=== PATIENT | male | born 1995 | race Caucasian/White ===

== ENCOUNTER 2018-10-27 17:05 | Emergency (ER) | payer OTHER, SELFPAY ==
[2018-10-27 17:06] VITALS: BP 134/69; PULSE 84; RESP 16; TEMP 36.9; O2SAT 98; BMI 24.6
--- NOTE | 2018-10-27 17:16 | US_ITS ---
STUDY: SCROTUM ULTRASOUND REASON FOR EXAM: Male, 22 years old. Left-sided testicular pain. TECHNIQUE: Ultrasound evaluation of the scrotum was performed with color Doppler and static hernandez-scale imaging. COMPARISON: Prior comparison studies are not available for review at this time. FINDINGS: RIGHT TESTICLE INTRATESTICULAR: There is a normal size of the right testicle. The right testicle measures 2.9 x 2.1 x 4.8 cm. There is a homogenous echotexture. There is normal arterial and normal venous vascularity. There is no demonstrated right testicular mass or cyst. EXTRATESTICULAR: The epididymis is normal in size. The epididymis head measures 1.5 x 0.7 x 1.3 cm. There is normal vascularity of the epididymis. There is a cystic structure within the epididymis, with low level echoes, consistent with a spermatocele. There is no demonstrated hydrocele. There is no demonstrated varicocele. There is no demonstrated extratesticular mass or cyst. LEFT TESTICLE INTRATESTICULAR: There is a normal size of the left testicle. The left testicle measures 2.3 x 4.7 x 2.7 cm. There is a homogenous echotexture. There is normal arterial and normal venous vascularity. There is no demonstrated left testicular mass or cyst. EXTRATESTICULAR: The epididymis is enlarged. The epididymis head measures 2.7 x 3.5 cm. There is normal vascularity of the epididymis. There is a large epididymal cyst measuring 2.5 x 2.3 x 3.1 cm There is a moderate size hydrocele. There is no demonstrated varicocele. There is no demonstrated extratesticular mass or cyst. US/Testicular with Arterial Flow IMPRESSION: 1. Normal bilateral testicles. 2. Enlargement of the left epididymis with hypervascularity suggests sequela of acute epididymitis. 3. Moderate left-sided hydrocele. Electronically Signed: Radha Thorne MD at 20:00 EDT , Service support ,
[2018-10-27 17:35] LABS: Bacteria 0 SEEN /hpf (None Seen); Mucous, Urine 0 SEEN /hpf (<or=2+); Red Blood Cells-Urine 0 SEEN /hpf (0-5)
[2018-10-27 17:38] LABS: Glucose, Dipstick Normal (Normal); Ketone-Dipstick Negative (Negative); Leukocyte Esterase-Dipstick Negative /ul (Negative); Nitrite-Dipstick Negative (Negative); Occult Blood-Urine Negative /ul (Negative); Protein-Dipstick Negative (Negative); Urine Bilirubin Dipstick Negative (Negative); Urine Urobilinogen Normal (Normal)
[2018-10-27 17:52] LABS: Color, Urine YELLOW (Yellow); Urine Clarity Clear (Clear)
[2018-10-27 17:58] LABS: Squamous Epithelial Cells - UA 0-5 SEEN /hpf (0-5)
[2018-10-27 17:59] LABS: White Blood Cells 0-5 SEEN /hpf (0-5)
[2018-10-27 19:14] VITALS: RESP 16
--- NOTE | 2018-10-27 19:58 | ED.VISSUMM ---
- ER Visit Summary Date of Service: 10/27/18 Chief Complaint: [Left testicle pain] History of Present Illness: The patient is a 22 M [presents to the emergency department with pain in his left testicle since yesterday around 2 PM. Patient denies any trauma. Patient does have a history of a hydrocele which she was diagnosed with a young age. Patient denies any fever or recent illness. He denies any penile discharge. He denies nausea or vomiting.] Physical Examination: [HEENT-PERRLA, EOMI. Cranial nerves II through XII grossly intact. TMs clear. Mucous membranes moist. No adenopathy. Cardiovascular-regular rate and rhythm without murmur or ectopy Lungs-clear to auscultation, chest wall stable without crepitus or subcu emphysema Abdomen-normoactive bowel sounds, soft, nontender, no rebound or rigidity, no peritoneal signs. exam-patient is a circumcised male. Patient has tenderness over the left posterior testicle and epididymis. There is fullness to the area. Normal testicular lie. Normal cremasteric reflex. Extremities-intact ?4, normal range of motion, normal pulses, atraumatic ] Test Results: [Urinalysis was normal. Testicular ultrasound showed left epididymitis and a left hydrocele] Emergency Department Course and Treatment: [Patient will be given a prescription for Bactrim and naproxen. Patient will be given referral to urology] Treatment Plan: [Treat with Bactrim and naproxen. Patient to follow-up with urology] Disposition: [Discharged home in stable condition] Impression: [Left epididymitis] This note was generated with [employer] dictation software. It may contain incorrect words, spelling, and punctuation that were not noted in review of the chart prior to signing ED Disposition - Plan for ED Patient: Referrals: German White MD [Primary Care Provider] -
--- NOTE | 2018-10-27 20:05 | ED.DEP ---
ED Disposition - Plan for ED Patient: Instructions: ED Epididymitis Prescriptions: Naproxen [Naprosyn] 500 mg PO BID PRN #20 tab Smz/Tmp Ds [Bactrim Ds] 1 tab PO BID #28 tab Referrals: German White MD [Primary Care Provider] - Roge Elizabeth MD [STAFF PHYSICIAN] - 5-7 Days
[2018-10-27] MEDS: Smz/Tmp Ds Tablet 1 TABLET PO (20:14)
[2018-10-27 20:15] VITALS: BP 117/72; PULSE 73; RESP 16; O2SAT 98
== END 2018-10-27 20:17 | disposition home or self-care (01) ==
PROVIDERS: Emergency Provider Emergency Medicine; Family Provider Family Medicine; PCP Family Medicine
DX: N45.1 Epididymitis (principal); N43.3 Hydrocele, unspecified
CPT/HCPCS: 76870; 81001; 93976; 99283